=== PATIENT | female | born 1965 | race American Indian/Alaskan Native ===

== ENCOUNTER 2021-01-09 10:09 | Outpatient (CLI) | payer MEDICARE ==
[2021-01-09 11:05] LABS: Alanine Aminotransferase 32 units/L (7-56); Albumin 3.9 g/dL (3.9-5); Blood Urea Nitrogen 18 mg/dL (7-17); Hemolysis Index 4
[2021-01-09 11:07] LABS: BUN/Creatinine Ratio 26; Bilirubin,Direct < 0.2 mg/dL (0-0.2)
== END 2021-01-09 10:10 | disposition home or self-care (01) ==
LOC: LAB 10:09
PROVIDERS: ATTEND Psychiatry & Neurology Psychiatry
DX: F33.2 Major depressive disorder, recurrent severe without psychotic features (principal)
CPT/HCPCS: 36415; 80053; 80076

== ENCOUNTER 2021-01-23 10:04 | Emergency (ER) | payer OTHER, MEDICARE ==
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
[2021-01-23 11:12] LABS: Alanine Aminotransferase 26 units/L (7-56); Albumin 4.1 g/dL (3.9-5); Blood Urea Nitrogen 11 mg/dL (7-17); Calcium 10.3 mg/dL (8.4-10.2); Hemolysis Index 6
[2021-01-23 11:13] LABS: BUN/Creatinine Ratio 16
[2021-01-23 11:18] LABS: Basophils # (Auto) 0.1 K/mm3 (0.0-0.1); Basophils % (Auto) 1.2 % (0.0-1.8); Eosinophils # (Auto) 0.2 K/mm3 (0.0-0.4); Eosinophils % (Auto) 3.1 % (0.0-4.3); Hematocrit 46.4 % (30.3-42.9); Hemoglobin 14.7 gm/dl (10.1-14.3); Lymphocytes # (Auto) 1.8 K/mm3 (1.2-5.4); Lymphocytes % (Auto) 31.9 % (13.4-35.0); Mean Corpuscular HGB Conc 32 % (30-34); Mean Corpuscular Volume 88 fl (79-97); Monocytes # (Auto) 0.6 K/mm3 (0.0-0.8); Monocytes % (Auto) 10.7 % (0.0-7.3); Platelet Count 231 K/mm3 (140-440); Red Blood Count 5.29 M/mm3 (3.65-5.03)
[2021-01-23] MEDS ORDERED: FUROSEMIDE 40 MG/4 ML INJ IV ONE (11:18)
--- NOTE | 2021-01-23 11:32 | Vascular Lab Report ---
DUPLEX DOPPLER LOWER EXTREMITY VEINS, LEFT INDICATION: LLE swelling and pain. TECHNIQUE: Duplex doppler imaging was performed through the veins of the left lower extremity using venous compr ession and other maneuvers. COMPARISON: None available. FINDINGS: Common femoral vein: Negative. Superficial femoral vein: Negative. Popliteal vein: Negative. Calf veins: Negative. Additional findings: None. IMPRESSION: 1. No sonographic evidence for DVT in the left lower extremity. Signer Name: Hillary Ferguson MD Signed: 01/23/2021 11:27 AM Workstation Name: [id number]
--- NOTE | 2021-01-23 11:45 | XRay Report ---
CHEST 2 VIEWS INDICATION / CLINICAL INFORMATION: SOB, leg swelling. FINDINGS: SUPPORT DEVICES: None. HEART / MEDIASTINUM: Cardiomegaly. LUNGS / PLEURA: Increased pulmonary venous prominence concerning for pulmonary congestion. No signifi cant edema. No pleural effusion. Signer Name: Paco Cha MD Signed: 01/23/2021 11:41 AM Workstation Name: [id number]
[2021-01-23 12:54] VITALS: BP 164/80
== END 2021-01-23 12:53 | disposition home or self-care (01) ==
LOC: ED 10:04
DX: M79.605 Pain in left leg (principal); M79.89 Other specified soft tissue disorders; I50.9 Heart failure, unspecified
CPT/HCPCS: 36415; 71046; 80053; 83880; 84484; 85025; 93005; 93971; 96374; 99284; J1940

== ENCOUNTER 2021-02-15 16:14 | Emergency (ER) | payer MEDICARE, OTHER ==
[2021-02-15 16:30] VITALS: BP 158/78
== END 2021-02-15 19:27 | disposition left against medical advice (07) ==
LOC: ED 16:14
DX: R06.00 Dyspnea, unspecified (principal); Z53.21 Procedure and treatment not carried out due to patient leaving prior to being seen by health care provider

== ENCOUNTER 2021-02-15 22:42 | Emergency (ER) | payer MEDICARE ==
[2021-02-15 22:49] VITALS: BP 120/75
[2021-02-16] MEDS ORDERED: DEXAMETHASONE 4 MG TAB PO ONE (00:57)
--- NOTE | 2021-02-16 01:07 | Emergency Department Report ---
HPI - General Chief Complaint: Dyspnea/Respdistress Time Seen by Provider: 02/16/21 00:56 - HPI HPI: 55-year-old -[place] female presents to the emergency department with a complaint of a 1 week history of shortness of breath, mixed dry and productive cough, wheezing, and head congestion. She has a history of COPD (not O2 dependent), paroxysmal atrial fibrillation on Eliquis for anticoagulation, hypertension, CHF. The patient is a tobacco smoker but denies any illicit drug use. The patient was seen here about 1 month ago for swelling of the leg and some shortness of breath and was found to have a mild CHF exacerbation that did not require admission at that time. Patient has had 1 of 2 Covid vaccinations. She denies any fever, chest pain, lower extremity swelling, nausea, vomiting, back pain or diaphoresis. No recent travel or sick contacts at home. She does not have a primary care physician. She has not taken anything for symptoms prior to presentation today. ED Past Medical Hx - Past Medical History Hx Hypertension: Yes Hx Psychiatric Treatment: Yes (DEPRESSION) - Surgical History Additional Surgical History: TUBES TIED - Social History Smoking Status: Current Every Day Smoker - Medications Home Medications: Home Medications Medication Instructions Recorded Confirmed Last Taken Type Meloxicam [Mobic] 7.5 mg PO QDAY PRN #10 tablet 01/23/21 Unknown Rx Menthol/Camphor [[place] 1 applicatio TP BID #18 oint...g. 01/23/21 Unknown Rx Ointment] Albuterol Sulfate [Proventil Hfa] 1 puff IH TID PRN #1 hfa.aer.ad 02/16/21 Unknown Rx Benzonatate [Tessalon Perles] 100 mg PO Q8HR PRN #20 capsule 02/16/21 Unknown Rx ED Review of Systems ROS: Stated complaint: SOB Other details as noted in HPI Comment: All other systems reviewed and negative Constitutional: denies: chills, fever Eyes: denies: eye pain, vision change ENT: denies: ear pain, throat pain Respiratory: cough, shortness of breath, wheezing Cardiovascular: denies: chest pain, edema Gastrointestinal: denies: abdominal pain, vomiting Genitourinary: denies: dysuria, discharge Musculoskeletal: denies: back pain, arthralgia Skin: denies: rash, lesions Neurological: denies: headache, weakness Physical Exam - Physical Exam Vital Signs: Vital Signs 02/15/21 22:45 Temperature 98.1 F Pulse Rate 83 Respiratory 17 Rate Blood Pressure 120/75 [Right] O2 Sat by Pulse 98 Oximetry Physical Exam: GENERAL: The patient is well-developed well-nourished. HENT: Normocephalic. Atraumatic. Patient has moist mucous membranes. EYES: Extraocular motions are intact. NECK: Supple. Trachea is midline. CHEST/LUNGS: Mild to moderate expiratory wheezing. No tachypnea or accessory muscle use. No cough heard during examination. HEART/CARDIOVASCULAR: Regular. There is no tachycardia. There is no murmur. ABDOMEN: Abdomen is soft, nontender. Patient has normal bowel sounds. SKIN: Skin is warm and dry. NEURO: The patient is awake, alert, and oriented. The patient is cooperative. The patient has no focal neurologic deficits. Normal speech. MUSCULOSKELETAL: There is no tenderness or deformity. There is no limitation range of motion. ED Course Vital Signs 02/15/21 22:45 Temperature 98.1 F Pulse Rate 83 Respiratory 17 Rate Blood Pressure 120/75 [Right] O2 Sat by Pulse 98 Oximetry ED Medical Decision Making - Lab Data Result diagrams: 02/16/21 01:35 02/16/21 01:35 Lab Results 02/16/21 02/16/21 Range/Units 01:35 01:35 WBC 5.0 (4.5-11.0) K/mm3 RBC 5.19 H (3.65-5.03) M/mm3 Hgb 14.4 H (10.1-14.3) gm/dl Hct 46.2 H (30.3-42.9) % MCV 89 (79-97) fl MCH 28 (28-32) pg MCHC 31 (30-34) % RDW 14.8 (13.2-15.2) % Plt Count 198 (140-440) K/mm3 Lymph % (Auto) 37.8 H (13.4-35.0) % [place]rick % (Auto) 9.7 H (0.0-7.3) % Eos % (Auto) 2.7 (0.0-4.3) % Baso % (Auto) 1.4 (0.0-1.8) % Lymph # (Auto) 1.9 (1.2-5.4) K/mm3 [place] # (Auto) 0.5 (0.0-0.8) K/mm3 Eos # (Auto) 0.1 (0.0-0.4) K/mm3 Baso # (Auto) 0.1 (0.0-0.1) K/mm3 Seg Neutrophils % 48.4 (40.0-70.0) % Seg Neutrophils # 2.4 (1.8-7.7) K/mm3 Sodium 143 (137-145) mmol/L Potassium 4.5 (3.6-5.0) mmol/L Chloride 105.1 (98-107) mmol/L Carbon Dioxide 28 (22-30) mmol/L Anion Gap 14 mmol/L BUN 20 H (7-17) mg/dL Creatinine 0.8 (0.6-1.2) mg/dL Estimated GFR > 60 ml/min BUN/Creatinine Ratio 25 % Glucose 93 (65-100) mg/dL Calcium 9.9 (8.4-10.2) mg/dL Total Bilirubin 0.40 (0.1-1.2) mg/dL AST 60 H (5-40) units/L ALT 44 (7-56) units/L Alkaline Phosphatase 118 (35-129) units/L NT-Pro-B Natriuret Pep 633.4 (0-900) pg/mL Total Protein 7.0 (6.3-8.2) g/dL Albumin 4.0 (3.9-5) g/dL Albumin/Globulin Ratio 1.3 % - Radiology Data Radiology results: image reviewed interpreted by me: Chest x-ray shows some mild cardiomegaly and pulmonary vascular congestion. No obvious pneumonia. No widened mediastinum. No pneumothorax. - Medical Decision Making Patient presents with a 1 week history of head and chest congestion with a productive cough and some shortness of breath. On examination the patient has moderate expiratory wheezing but otherwise does not have any tachypnea or accessory muscle use and does not appear in any respiratory or acute distress. Chest x-ray shows mild cardiomegaly and pulmonary vascular congestion, but no obvious signs of pneumonia. No pneumothorax or widened mediastinum. Patient was given a dose of Decadron and then 2 different rounds of breathing treatments. Upon reevaluation she is feeling greatly improved and the wheezing has all but resolved. Labs have been mostly unremarkable including CBC, metabolic panel and the BNP is at 600 which is about half of when she was here a month ago. She does not appear to be in decompensated heart failure. Overall her symptoms appear more consistent with a viral upper respiratory infection causing bronchospasm. Vital signs have been reassuring throughout her ED course including being afebrile and no hypoxia. Patient be discharged home with an albuterol inhaler and antitussive medication. She was given an outpatient referral for primary care. She will return to the ER with any worsening of her symptoms or with any acute distress. Critical Care Time: No Critical care attestation.: If time is entered above; I have spent that time in minutes in the direct care of this critically ill patient, excluding procedure time. ED Disposition Clinical Impression: Bronchospasm Upper respiratory infection Qualifiers: URI type: unspecified viral URI Qualified Code(s): J06.9 - Acute upper respiratory infection, unspecified Disposition: 01 HOME / SELF CARE / HOMELESS Is pt being admited?: No Condition: Stable Instructions: Bronchospasm, Adult, Viral Respiratory Infection Additional Instructions: Please follow-up with a primary care physician in the next few days. I have given you a referral for a local primary care physician, Dr. Pierre, and a primary care clinic, [facility]. Take all medications as previously prescribed. Return to the emergency department with any worsening of your symptoms, new or concerning symptoms not addressed during this current emergency department visit, or with any acute distress. Prescriptions: Albuterol Sulfate [Proventil Hfa] 1 puff IH TID PRN #1 hfa.aer.ad PRN Reason: shortness of breath/wheezing Benzonatate [Tessalon Perles] 100 mg PO Q8HR PRN #20 capsule PRN Reason: Cough Referrals: PRIMARY CAREMD [Primary Care Provider] - 3-5 Days MARIAM PIERRE MD [Staff Physician] - 3-[address] [facility] [Provider Group] - 3-5 Days Time of Disposition: 04:06
[2021-02-16] MEDS ORDERED: IPRATROPIUM/ALBUTEROL SULFATE 3 ML AMPUL.NEB IH ONE (01:18)
--- NOTE | 2021-02-16 01:27 | XRay Report ---
XR chest routine 2V INDICATION / CLINICAL INFORMATION: SOB, cough. COMPARISON: 01/23/2021 FINDINGS: SUPPORT DEVICES: None. HEART /PULMONARY VASCULATURE: Heart size upper normal. There is mild vasculature congestion. LUNGS / PLEURA: No airspace consolidation. No pneumothorax. ADDITIONAL FINDINGS: No significant additional findings. IMPRESSION: Cardiac enlargement with mild pulmonary vasculature congestion. Signer Name: Vinod Kiser MD Signed: 02/16/2021 1:23 AM Workstation Name: [id number]
[2021-02-16 02:04] LABS: Basophils # (Auto) 0.1 K/mm3 (0.0-0.1); Basophils % (Auto) 1.4 % (0.0-1.8); Eosinophils # (Auto) 0.1 K/mm3 (0.0-0.4); Eosinophils % (Auto) 2.7 % (0.0-4.3); Hematocrit 46.2 % (30.3-42.9); Hemoglobin 14.4 gm/dl (10.1-14.3); Lymphocytes # (Auto) 1.9 K/mm3 (1.2-5.4); Lymphocytes % (Auto) 37.8 % (13.4-35.0); Mean Corpuscular HGB Conc 31 % (30-34); Mean Corpuscular Volume 89 fl (79-97); Monocytes # (Auto) 0.5 K/mm3 (0.0-0.8); Monocytes % (Auto) 9.7 % (0.0-7.3); Platelet Count 198 K/mm3 (140-440); Red Blood Count 5.19 M/mm3 (3.65-5.03); Red Cell Distribution Width 14.8 % (13.2-15.2)
[2021-02-16 02:11] LABS: Alanine Aminotransferase 44 units/L (7-56); BUN/Creatinine Ratio 25; Blood Urea Nitrogen 20 mg/dL (7-17); Calcium 9.9 mg/dL (8.4-10.2); Hemolysis Index 36
[2021-02-16] MEDS ORDERED: ALBUTEROL 2.5 MG/3 ML NEBU IH ONE (02:41)
== END 2021-02-16 04:24 | disposition home or self-care (01) ==
LOC: ED 22:42
DX: J98.01 Acute bronchospasm (principal); J06.9 Acute upper respiratory infection, unspecified; I10 Essential (primary) hypertension; F32.9 Major depressive disorder, single episode, unspecified; F17.200 Nicotine dependence, unspecified, uncomplicated; Z98.51 Tubal ligation status; Z79.899 Other long term (current) drug therapy
CPT/HCPCS: 36415; 71046; 80053; 83880; 85025; 94640; 99284; J8540